=== PATIENT | female | born 1980 | race Caucasian/White ===

== ENCOUNTER 2016-12-29 06:38 | Day surgery (SDC) | payer MEDICARE ==
[~2016-12-29] VITALS: Ht 170.2 cm; Wt 105.0 kg
[~2016-12-29 06:38] MED LIST: HYDR-3307 PO; LEVO75TA5 PO; METH750T87 PO; OXYC-302 PO
[2016-12-29 07:11] VITALS: BP 132/82
[2016-12-29] MEDS ORDERED: SODIUM CHLORIDE 0.9% 1,000 ML IV SCH (07:16)
[2016-12-29] MEDS ORDERED: LIDOCAINE 2%, 20ML ONE (07:45)
[2016-12-29] MEDS ORDERED: FENTANYL PF 100 MCG/2ML ONE (08:07)
[2016-12-29] MEDS ORDERED: MIDAZOLAM 1 MG/ML, 5ML ONE (08:07)
[2016-12-29] MEDS ORDERED: NALOXONE 1 MG/ML, 2ML ONE (08:07)
[2016-12-29] MEDS ORDERED: FLUMAZENIL 0.1 MG/1 ML, 5ML ONE (08:07)
[2016-12-29] MEDS ORDERED: OXYcodone/APAP 10/325MG TABLET ONE (09:51)
[2016-12-29] MEDS ORDERED: OXYcodone/APAP 10/325MG TABLET PO ONE (10:00)
== END 2016-12-29 11:15 | disposition home or self-care (01) ==
LOC: OUT 06:38
PROVIDERS: ATTEND Internal Medicine Gastroenterology
DX: K76.0 Fatty (change of) liver, not elsewhere classified (principal); K75.89 Other specified inflammatory liver diseases; F12.10 Cannabis abuse, uncomplicated; F17.290 Nicotine dependence, other tobacco product, uncomplicated
CPT/HCPCS: 36415; 47000; 76942; 85610; 88307; 88313; 99156; 99157; J2250; J3010; J3490; J2310